=== PATIENT | female | born 1960 | race Caucasian/White ===

== ENCOUNTER → 2016-10-23 | Outpatient (CLI) | payer MEDICARE ==
[~2016-10-23] MED LIST: ACTOS 15 MG15 MG PO; AMARYL2 MG PO; ATIVAN 1 MG1 MG PO; EFFEXOR XR150 MG PO; INVEGA SUS117 MG/0.7 IM; INVEGA SUS117 MG/0.7 PO; KLONOPIN0.5 MG PO; PROTONIX20 MG PO; PROTONIX40 MG PO; REMERON15 MG PO; THERA-VITE W/ B1 TAB PO; VENLAFAXINE HC225 MG PO; ZOCOR20 MG PO; ZYPREXA ORALLY10 MG PO; ZYPREXA10 MG PO
== END | disposition disaster alternative care site (69) ==
LOC: GAMB 17:49
DX: F99 Mental disorder, not otherwise specified (principal); E11.65 Type 2 diabetes mellitus with hyperglycemia; E78.5 Hyperlipidemia, unspecified; F44.4 Conversion disorder with motor symptom or deficit; K59.00 Constipation, unspecified; R41.82 Altered mental status, unspecified; R40.20 Unspecified coma; R63.0 Anorexia; Z90.89 Acquired absence of other organs; Z79.899 Other long term (current) drug therapy; Z88.0 Allergy status to penicillin; Z88.1 Allergy status to other antibiotic agents
CPT/HCPCS: A0422; A0425; A0428